=== PATIENT | male | born 1940 | race Caucasian/White ===

== ENCOUNTER 2017-11-27 13:14 | Inpatient (IN) | payer MEDICARE ==
[~2017-11-27] VITALS: Ht 182.9 cm; Wt 89.1 kg
[~2017-11-27 13:14] MED LIST: ASPI-1264 PO; ATOR40TA PO; BISA-77 PO; CLOP75TA35 PO; DEXL30CA3 PO; DOCU-148 PO; GABA-341 PO; HYDR1TAB69 PO; LISI-600 PO; NAP220T PO; NEBI10TA4 PO; NITR0.4T48 SL; TRIA1CAP6 PO
[2017-11-27 14:01] LABS: BASOPHILS % (AUTO) 0.2 % (0-1); EOSINOPHILS # (AUTO) 0.2 X10'3 (0-0.9); EOSINOPHILS % (AUTO) 1.6 % (0-6); HEMATOCRIT 40.7 % (42.0-52.0); HEMOGLOBIN 13.6 g/dl (14.0-17.9); LYMPHOCYTES # (AUTO) 0.8 X10'3 (1.1-4.8); LYMPHOCYTES % (AUTO) 6.7 % (21-51); MEAN CORPUSCULAR HEMOGLOBIN 31.9 PG (27.0-31.0); MEAN CORPUSCULAR HGB CONC 33.4 % (33.0-36.5); MEAN CORPUSCULAR VOLUME 95.7 FL (78-98); MEAN PLATELET VOLUME 6.7 FL (7.4-10.4); MONOCYTES # (AUTO) 0.6 X10'3 (0-0.9); MONOCYTES % (AUTO) 5.3 % (2-12); NEUTROPHILS # (AUTO) 10.3 X10'3 (1.8-7.7); NEUTROPHILS % (AUTO) 86.2 % (42-75); PLATELET COUNT 321 X10'3 (140-440); RED BLOOD COUNT 4.26 X10'6 (4.70-6.10); RED CELL DISTRIBUTION WIDTH 14.9 % (11.5-14.5)
[2017-11-27 14:11] LABS: INR 1.2 INR; PARTIAL THROMBOPLASTIN TIME 27 SECONDS (22-32)
[2017-11-27 14:16] LABS: ALANINE AMINOTRANSFERASE 23 U/L (12-78); ALBUMIN 3.7 G/DL (3.4-5.0); ALBUMIN/GLOBULIN RATIO 1.1 (1.1-1.5); ALKALINE PHOSPHATASE 103 IU/L (46-116); ANION GAP 10 (8-16); ASPARTATE AMINO TRANSFERASE 20 U/L (10-37); BILIRUBIN,TOTAL 0.7 MG/DL (0.1-1.0); BLOOD UREA NITROGEN 14 MG/DL (7-18); BUN/CREATININE RATIO 16.5 (5.4-32.0); CHLORIDE 102 MMOL/L (99-107); CREATININE 0.85 MG/DL (0.60-1.10); GLUCOSE 105 MG/DL (70-104); SODIUM 139 MMOL/L (135-145); TOTAL CARBON DIOXIDE 26.9 MMOL/L (24-32); TOTAL PROTEIN 7.1 G/DL (6.4-8.2); eGFR 87 ML/MIN
[2017-11-27 14:24] LABS: MAGNESIUM 1.9 MG/DL (1.5-2.4)
[2017-11-27] MEDS ORDERED: nitroGLYCERIN 1gm ointment UD TP ONE (14:30)
[2017-11-27] MEDS ORDERED: potassium Cl 40MEQ/NS 500ml 500 ML IV PRN ×2 (14:45)
[2017-11-27] MEDS ORDERED: magnesium hydroxide 30ml (MOM) UD suspension PO PRN (14:45)
[2017-11-27] MEDS ORDERED: HYDROcodone/acetaminophen 5mg/325mg tablet PO PRN (14:45)
[2017-11-27] MEDS ORDERED: ondansetron/PF 4mg/2ml inj IV PRN (14:45)
[2017-11-27] MEDS ORDERED: HYDROmorphone 1 mg/ml syringe IV PRN (14:45)
[2017-11-27] MEDS ORDERED: HYDROcodone/acetaminophen 10/325mg tab PO PRN (14:45)
[2017-11-27] MEDS ORDERED: magnesium 4gm in 100ml NS 100 ML IV PRN (14:45)
[2017-11-27] MEDS ORDERED: morphine sulfate 8 MG/ML SYRINGE IV PRN (14:45)
[2017-11-27] MEDS ORDERED: acetaminophen 325mg tablet PO PRN ×2 (14:45)
[2017-11-27] MEDS ORDERED: magnesium 2GM in 50ml NS 50 ML IV PRN (14:45)
[2017-11-27] MEDS ORDERED: metoclopramide 5 mg/ml inj IV PRN (14:45)
[2017-11-27] MEDS ORDERED: potassium Cl 20 mEq SR tablet PO PRN ×2 (14:45)
[2017-11-27] MEDS ORDERED: magnesium Cl slow-release 64mg tablet PO PRN (14:45)
[2017-11-27] MEDS ORDERED: mag hydrox/Alum hydrox/simeth 30ml oral suspension PO PRN (14:45)
[2017-11-27] MEDS: nitroGLYCERIN 1gm ointment UD TP SCH (16:00)
[2017-11-27 19:00] VITALS: BP 112/64
[2017-11-27] MEDS: naproxen sodium 220mg tablet PO SCH (20:00)
[2017-11-27] MEDS: temazepam 15mg capsule PO PRN (21:05)
[2017-11-27] MEDS: gabapentin 100mg capsule PO SCH (21:06)
[2017-11-27] MEDS: lisinopril 20mg tablet PO SCH (21:06)
[2017-11-27] MEDS: docusate sod 100mg capsule PO SCH (21:08)
[2017-11-27 23:00] VITALS: BP 145/82
[2017-11-28] MEDS ORDERED: heparin, porcine 5000 units/ml vial SQ SCH
[2017-11-28] MEDS: nitroGLYCERIN 1gm ointment UD TP SCH (00:15)
[2017-11-28] MEDS: temazepam 15mg capsule PO PRN (02:38)
[2017-11-28 03:00] VITALS: BP 132/93
[2017-11-28 03:20] LABS: BASOPHILS % (AUTO) 0.3 % (0-1); EOSINOPHILS # (AUTO) 0.2 X10'3 (0-0.9); EOSINOPHILS % (AUTO) 2.4 % (0-6); HEMATOCRIT 37.4 % (42.0-52.0); HEMOGLOBIN 12.5 g/dl (14.0-17.9); LYMPHOCYTES # (AUTO) 1.3 X10'3 (1.1-4.8); LYMPHOCYTES % (AUTO) 16.7 % (21-51); MEAN CORPUSCULAR HEMOGLOBIN 31.9 PG (27.0-31.0); MEAN CORPUSCULAR HGB CONC 33.4 % (33.0-36.5); MEAN CORPUSCULAR VOLUME 95.2 FL (78-98); MEAN PLATELET VOLUME 7.5 FL (7.4-10.4); MONOCYTES # (AUTO) 0.6 X10'3 (0-0.9); MONOCYTES % (AUTO) 7.4 % (2-12); NEUTROPHILS # (AUTO) 5.8 X10'3 (1.8-7.7); NEUTROPHILS % (AUTO) 73.2 % (42-75); PLATELET COUNT 310 X10'3 (140-440); RED BLOOD COUNT 3.92 X10'6 (4.70-6.10); RED CELL DISTRIBUTION WIDTH 14.9 % (11.5-14.5); WHITE BLOOD COUNT 7.9 X10'3 (4.5-11.0)
[2017-11-28 03:37] LABS: ALBUMIN 3.3 G/DL (3.4-5.0); ANION GAP 8 (8-16); BLOOD UREA NITROGEN 15 MG/DL (7-18); BUN/CREATININE RATIO 20.3 (5.4-32.0); CALCIUM 8.9 MG/DL (8.5-10.1); CHLORIDE 105 MMOL/L (99-107); CREATININE 0.74 MG/DL (0.60-1.10); GLUCOSE 85 MG/DL (70-104); MAGNESIUM 1.9 MG/DL (1.5-2.4); POTASSIUM 3.9 MMOL/L (3.5-5.1); SODIUM 141 MMOL/L (135-145); TOTAL CARBON DIOXIDE 27.7 MMOL/L (24-32); eGFR > 90 ML/MIN
[2017-11-28 06:00] VITALS: BP 127/80
[2017-11-28] MEDS ORDERED: pantoprazole 40mg Tablet.DR PO SCH (07:30)
[2017-11-28] MEDS: naproxen sodium 220mg tablet PO SCH (08:00)
[2017-11-28] MEDS ORDERED: K and/or MAG REPLACEMENT MC SCH (08:00)
[2017-11-28] MEDS ORDERED: apixaban 5mg tablet PO SCH (08:00)
[2017-11-28] MEDS ORDERED: aspirin 81mg tablet.DR PO SCH (08:00)
[2017-11-28] MEDS ORDERED: clopidogrel 75mg tablet PO SCH (08:00)
[2017-11-28] MEDS ORDERED: triamterene/HCTZ 37.5/25mg tablet PO SCH (08:00)
[2017-11-28] MEDS ORDERED: bisacodyl 5mg tablet.DR PO SCH (08:00)
[2017-11-28] MEDS ORDERED: aspirin 325mg tablet PO SCH (08:00)
[2017-11-28] MEDS ORDERED: isosorbide mononitrate 30mg tab.SR.24H PO SCH (08:00)
[2017-11-28] MEDS: docusate sod 100mg capsule PO SCH (08:27)
[2017-11-28] MEDS: gabapentin 100mg capsule PO SCH (08:27)
[2017-11-28] MEDS: lisinopril 20mg tablet PO SCH (08:31)
[2017-11-28] MEDS ORDERED: ISOS30TA6 PO (11:20)
== END 2017-11-28 11:30 | disposition home or self-care (01) | DRG 303 ==
LOC: ER 13:15 → ED HOLD 14:43 → PCU 3S 19:05
PROVIDERS: ADMIT Internal Medicine; ATTEND Internal Medicine
DX: I25.10 Atherosclerotic heart disease of native coronary artery without angina pectoris (principal); I48.2 Chronic atrial fibrillation; E78.5 Hyperlipidemia, unspecified; I10 Essential (primary) hypertension; G47.30 Sleep apnea, unspecified; K21.9 Gastro-esophageal reflux disease without esophagitis; K42.9 Umbilical hernia without obstruction or gangrene; Z96.653 Presence of artificial knee joint, bilateral; I25.2 Old myocardial infarction; Z79.899 Other long term (current) drug therapy; Z79.02 Long term (current) use of antithrombotics/antiplatelets; Z79.01 Long term (current) use of anticoagulants; Z79.82 Long term (current) use of aspirin; Z95.5 Presence of coronary angioplasty implant and graft
CPT/HCPCS: 36415; 71010; 80048; 80053; 80162; 83735; 83880; 84484; 85025; 85610; 85730; 87070; 99285; A6258; J1644

== ENCOUNTER 2018-01-06 14:11 | Day surgery (SDC) | payer MEDICARE ==
[2018-01-06] VITALS (7 sets, daily range): BP systolic 159–169; BP diastolic 88–97
[~2018-01-06] VITALS: Ht 182.9 cm; Wt 161.4 kg
[~2018-01-06 14:11] MED LIST changes: +ISOS30TA6 PO
[2018-01-06] MEDS ORDERED: normal saline 1000ml 1,000 ML IV SCH (14:40)
[2018-01-06] MEDS ORDERED: diphenhydrAMINE 25mg capsule PO ONE (14:40)
[2018-01-06] MEDS ORDERED: LORazepam 0.5 MG tablet PO ONE (14:40)
[2018-01-06] MEDS ORDERED: FLO0.4C PO (16:00)
[2018-01-06] MEDS ORDERED: DOCU-28 PO (16:00)
[2018-01-06] MEDS ORDERED: AMLO-93 PO (16:00)
[2018-01-06] MEDS ORDERED: ALBU18HF2 IH (16:00)
[2018-01-06] MEDS ORDERED: ISOS30TA9 PO (16:00)
[2018-01-06] MEDS ORDERED: FINA5TAB11 PO (16:00)
[2018-01-06] MEDS ORDERED: ENOX40SY7 SUBCUT (16:00)
[2018-01-06] MEDS ORDERED: APIX5TAB3 PO (16:00)
[2018-01-06] MEDS ORDERED: ASPI81TA52 PO (16:00)
[2018-01-06] MEDS ORDERED: IBUP1TAB11 PO (16:00)
[2018-01-06] MEDS ORDERED: iohexol 350MG/ML 100ml bottle IV ONE (16:19)
[2018-01-06] MEDS ORDERED: LIDOcaine 1%/PF (10mg/ml) 5ml vial ONE (16:19)
[2018-01-06] MEDS ORDERED: fentaNYL/PF 50MCG/1 ML 2ML syringe ONE (17:40)
[2018-01-06] MEDS ORDERED: midazolam 2 mg/2 ml injection ONE (17:40)
[2018-01-06] MEDS ORDERED: proCHLORperazine 10 MG/2 ml inj IV PRN (18:35)
[2018-01-06] MEDS ORDERED: ondansetron/PF 4mg/2ml inj IV PRN (18:35)
[2018-01-06] MEDS ORDERED: HYDROcodone/acetaminophen 10/325mg tab PO PRN (18:35)
[2018-01-06] MEDS ORDERED: OXAZEpam 15mg capsule PO PRN (18:35)
[2018-01-06] MEDS ORDERED: HYDROcodone/acetaminophen 5mg/325mg tablet PO PRN (18:35)
== END 2018-01-06 20:40 | disposition home or self-care (01) ==
LOC: SSTAY O 14:11
PROVIDERS: ATTEND Internal Medicine Interventional Cardiology
DX: I25.10 Atherosclerotic heart disease of native coronary artery without angina pectoris (principal); I25.2 Old myocardial infarction; I10 Essential (primary) hypertension; G47.33 Obstructive sleep apnea (adult) (pediatric); I65.23 Occlusion and stenosis of bilateral carotid arteries; I27.20 Pulmonary hypertension, unspecified; I48.91 Unspecified atrial fibrillation; K21.9 Gastro-esophageal reflux disease without esophagitis; I71.4 Abdominal aortic aneurysm, without rupture; E78.5 Hyperlipidemia, unspecified; I35.0 Nonrheumatic aortic (valve) stenosis; Z79.01 Long term (current) use of anticoagulants; Z79.82 Long term (current) use of aspirin; Z96.643 Presence of artificial hip joint, bilateral; Z87.891 Personal history of nicotine dependence; Z98.890 Other specified postprocedural states; Z95.5 Presence of coronary angioplasty implant and graft; Z79.1 Long term (current) use of non-steroidal anti-inflammatories (NSAID); Z86.74 Personal history of sudden cardiac arrest
CPT/HCPCS: 93458; 99152; A6257; C1760; C1769; J1644; J2001; J2250; J3010; J7030; Q0163; Q9967; 99153; A4620

== ENCOUNTER 2018-02-15 07:14 | Emergency (ER) | payer MEDICARE ==
[~2018-02-15] VITALS: Ht 182.9 cm; Wt 100.0 kg
[~2018-02-15 07:14] MED LIST changes: +ALBU18HF2 IH; +AMLO-93 PO; +APIX5TAB3 PO; -ASPI-1264 PO; +ASPI81TA52 PO; -BISA-77 PO; -CLOP75TA35 PO; -DEXL30CA3 PO; -DOCU-148 PO; +DOCU-28 PO; +ENOX40SY7 SUBCUT; +FINA5TAB11 PO; +FLO0.4C PO; +IBUP1TAB11 PO; -ISOS30TA6 PO; +ISOS30TA9 PO; -NAP220T PO; -TRIA1CAP6 PO
[2018-02-15 07:39] LABS: BASOPHILS % (AUTO) 0.3 % (0-1); EOSINOPHILS # (AUTO) 0.1 X10'3 (0-0.9); EOSINOPHILS % (AUTO) 1.1 % (0-6); HEMATOCRIT 37.3 % (42.0-52.0); HEMOGLOBIN 12.5 g/dl (14.0-17.9); LYMPHOCYTES # (AUTO) 1.2 X10'3 (1.1-4.8); LYMPHOCYTES % (AUTO) 15.2 % (21-51); MEAN CORPUSCULAR HEMOGLOBIN 31.5 PG (27.0-31.0); MEAN CORPUSCULAR HGB CONC 33.6 % (33.0-36.5); MEAN CORPUSCULAR VOLUME 93.7 FL (78-98); MEAN PLATELET VOLUME 6.6 FL (7.4-10.4); MONOCYTES # (AUTO) 0.8 X10'3 (0-0.9); MONOCYTES % (AUTO) 9.7 % (2-12); NEUTROPHILS % (AUTO) 73.7 % (42-75); PLATELET COUNT 362 X10'3 (140-440); RED BLOOD COUNT 3.99 X10'6 (4.70-6.10); RED CELL DISTRIBUTION WIDTH 14.9 % (11.5-14.5); WHITE BLOOD COUNT 8.1 X10'3 (4.5-11.0)
[2018-02-15 07:50] LABS: INR 1.2 INR; PARTIAL THROMBOPLASTIN TIME 26 SECONDS (22-32); PROTHROMBIN TIME 12.4 SECONDS (9.0-12.0)
[2018-02-15 08:02] LABS: ALANINE AMINOTRANSFERASE 28 U/L (12-78); ALBUMIN 3.7 G/DL (3.4-5.0); ALBUMIN/GLOBULIN RATIO 1.1 (1.1-1.5); ALKALINE PHOSPHATASE 94 IU/L (46-116); ANION GAP 11 (8-16); ASPARTATE AMINO TRANSFERASE 15 U/L (10-37); BILIRUBIN,TOTAL 0.6 MG/DL (0.1-1.0); BLOOD UREA NITROGEN 15 MG/DL (7-18); BUN/CREATININE RATIO 17.4 (5.4-32.0); CALCIUM 9.4 MG/DL (8.5-10.1); CHLORIDE 101 MMOL/L (99-107); CREATININE 0.86 MG/DL (0.60-1.10); GLUCOSE 99 MG/DL (70-104); POTASSIUM 4.2 MMOL/L (3.5-5.1); SODIUM 138 MMOL/L (135-145); TOTAL CARBON DIOXIDE 26.5 MMOL/L (24-32); TOTAL PROTEIN 7.1 G/DL (6.4-8.2); eGFR 86 ML/MIN
[2018-02-15] MEDS ORDERED: apixaban 5mg tablet PO SCH (08:15)
[2018-02-15] MEDS ORDERED: metoprolol tartrate 50mg tablet PO ONE (08:15)
[2018-02-15] MEDS ORDERED: isosorbide mononitrate 30mg tab.SR.24H PO ONE (08:15)
[2018-02-15] MEDS ORDERED: apixaban 5mg tablet PO ONE (08:15)
[2018-02-15] MEDS ORDERED: amLODIPine 5mg tablet PO ONE (08:20)
[2018-02-15] MEDS ORDERED: ipratropium/albuterol 3ml nebule NEB ONE (08:40)
[2018-02-15] MEDS ORDERED: AMLO2.5T PO (09:10)
[2018-02-15] MEDS ORDERED: LORazepam 2 mg/ml vial IV ONE (09:20)
[2018-02-15 11:51] VITALS: BP 151/97
[2018-02-15] MEDS ORDERED: METO25TA6 PO (21:05)
[2018-02-15] MEDS ORDERED: MECL12.584 PO (21:05)
== END 2018-02-15 11:52 | disposition home or self-care (01) ==
LOC: ER 07:14
DX: S40.011A Contusion of right shoulder, initial encounter (principal); R06.02 Shortness of breath; I48.91 Unspecified atrial fibrillation; I25.10 Atherosclerotic heart disease of native coronary artery without angina pectoris; I10 Essential (primary) hypertension; K21.9 Gastro-esophageal reflux disease without esophagitis; I25.2 Old myocardial infarction; Z87.891 Personal history of nicotine dependence; Z98.61 Coronary angioplasty status; Z79.82 Long term (current) use of aspirin; Z79.899 Other long term (current) drug therapy; X58.XXXA Exposure to other specified factors, initial encounter; Y93.89 Activity, other specified; Y92.89 Other specified places as the place of occurrence of the external cause; Y99.8 Other external cause status
CPT/HCPCS: 36415; 71046; 80053; 83880; 84484; 85025; 85610; 85730; 93005; 94640; 94760; 96374; 99285; J2060

== ENCOUNTER 2018-02-15 15:24 | Emergency (ER) | payer MEDICARE ==
[~2018-02-15] VITALS: Ht 182.9 cm; Wt 100.0 kg
[~2018-02-15 15:24] MED LIST changes: +AMLO2.5T PO
[2018-02-15] MEDS ORDERED: hydrALAZINE 20mg/ml inj. IV ONE (19:25)
[2018-02-15] MEDS ORDERED: meclizine 12.5mg tablet PO ONE (19:25)
[2018-02-15] MEDS ORDERED: METO25TA6 PO (21:05)
[2018-02-15] MEDS ORDERED: MECL12.584 PO (21:05)
[2018-02-15 21:45] VITALS: BP 161/96
== END 2018-02-15 21:48 | disposition home or self-care (01) ==
LOC: ER 15:25
DX: H81.10 Benign paroxysmal vertigo, unspecified ear (principal); I10 Essential (primary) hypertension; I49.3 Ventricular premature depolarization; I25.10 Atherosclerotic heart disease of native coronary artery without angina pectoris; G89.29 Other chronic pain; K21.9 Gastro-esophageal reflux disease without esophagitis; Z87.891 Personal history of nicotine dependence; Z98.61 Coronary angioplasty status; Z79.82 Long term (current) use of aspirin; Z79.899 Other long term (current) drug therapy
CPT/HCPCS: 70450; 93005; 96374; 99284; J0360; J8597

== ENCOUNTER 2023-12-16 10:55 | Inpatient (IN) | payer MEDICARE ==
[~2023-12-16] VITALS: Ht 182.9 cm; Wt 96.0 kg
[~2023-12-16 10:55] MED LIST changes: -AMLO-93 PO; -AMLO2.5T PO; -ASPI81TA52 PO; -DOCU-28 PO; -ENOX40SY7 SUBCUT; -FINA5TAB11 PO; -FLO0.4C PO; +FURO40TA4 PO; -GABA-341 PO; +GABA300C PO; -HYDR1TAB69 PO; -IBUP1TAB11 PO; +ISOS30TA84 PO; -ISOS30TA9 PO; +LINE600T14 PO; -LISI-600 PO; +LISI20TA28 PO; -NITR0.4T48 SL; +SERT-153 PO; +melatonin; +probiotics; +vitamin c
[2023-12-16 12:04] LABS: BASOPHILS % (AUTO) 0.3 % (0-1); EOSINOPHILS % (AUTO) 0.4 % (0-6); HEMATOCRIT 35.4 % (42.0-52.0); HEMOGLOBIN 11.7 g/dl (14.0-17.9); LYMPHOCYTES # (AUTO) 0.6 X10'3 (1.1-4.8); LYMPHOCYTES % (AUTO) 7.4 % (21-51); MEAN CORPUSCULAR HEMOGLOBIN 31.2 PG (27.0-31.0); MEAN CORPUSCULAR HGB CONC 33.2 g/dL (33.0-36.5); MEAN PLATELET VOLUME 7.4 FL (7.4-10.4); MONOCYTES # (AUTO) 0.7 X10'3 (0-0.9); MONOCYTES % (AUTO) 8.7 % (2-12); NEUTROPHILS # (AUTO) 6.5 X10'3 (1.8-7.7); NEUTROPHILS % (AUTO) 83.2 % (42-75); PLATELET COUNT 136 X10'3 (140-440); RED BLOOD COUNT 3.77 X10'6 (4.70-6.10); WHITE BLOOD COUNT 7.8 X10'3 (4.5-11.0)
[2023-12-16 12:18] LABS: ALANINE AMINOTRANSFERASE 10 U/L (12-78); ALBUMIN 3.2 G/DL (3.4-5.0); ALBUMIN/GLOBULIN RATIO 0.7 (1.1-1.5); ALKALINE PHOSPHATASE 154 IU/L (46-116); ANION GAP 7 (8-16); ASPARTATE AMINO TRANSFERASE 23 U/L (10-37); BILIRUBIN,TOTAL 1.9 MG/DL (0.1-1.0); BLOOD UREA NITROGEN 16 MG/DL (7-18); BUN/CREATININE RATIO 22.2 (10.0-20.0); CALCIUM 9.4 MG/DL (8.5-10.1); CHLORIDE 99 MMOL/L (99-107); CREATININE 0.72 MG/DL (0.60-1.10); GLUCOSE 93 MG/DL (70-104); MAGNESIUM 1.7 MG/DL (1.5-2.4); POTASSIUM 4.1 MMOL/L (3.5-5.1); SODIUM 135 MMOL/L (135-145); TOTAL CARBON DIOXIDE 28.8 MMOL/L (24-32); TOTAL PROTEIN 7.8 G/DL (6.4-8.2); eCRCL 85 ML/MIN; eGFR > 90 ML/MIN
[2023-12-16 14:43] LABS: BILIRUBIN,URINE SMALL (Neg); CLARITY,URINE CLEAR (Clear); COLOR,URINE YELLOW (Yellow); GLUCOSE, URINE NEGATIVE (Neg); KETONES,URINE 15 mg/dl (Neg); LEUKOCYTE ESTERASE ,URINE NEGATIVE (Neg); NITRITES, URINE NEGATIVE (Neg); OCCULT BLOOD,URINE MODERATE (Neg); PH,URINE 5.5 (4.8-8.0); PROTEIN,URINE 100 mg/dl (Neg)
[2023-12-16 14:51] LABS: UA COLLECTION TYPE URINAL
[2023-12-16 14:53] LABS: WBC,URINE 20-30 /HPF (0-4)
[2023-12-16 14:54] LABS: BACTERIA,URINE 1+ /HPF (Neg); MUCUS STRANDS MODERATE /LPF (Neg); RBC,URINE NONE SEEN /HPF (0-2); SQUAMOUS EPITHELIAL CELL,UR FEW /LPF (FEW); WBC CLUMPS,URINE FEW /HPF (NEGATIVE)
[2023-12-16] MEDS ORDERED: aspirin 325mg tablet, delayed-release (Ecotrin) PO ONE (15:15)
[2023-12-16] MEDS ORDERED: ondansetron 4mg rapidly disintigrating tab PO PRN (15:30)
[2023-12-16] MEDS ORDERED: magnesium hydroxide 30ml (MOM) UD suspension PO PRN (15:30)
[2023-12-16] MEDS ORDERED: HYDROcodone/acetaminophen 10/325mg tab PO PRN (15:30)
[2023-12-16] MEDS ORDERED: HYDROcodone/acetaminophen 5mg/325mg tablet PO PRN (15:30)
[2023-12-16] MEDS ORDERED: potassium Cl 40MEQ/1/2NS 520ml 520 ML IV PRN (15:30)
[2023-12-16] MEDS ORDERED: morphine 2 MG/ML inj. syringe IV PRN (15:30)
[2023-12-16] MEDS ORDERED: ondansetron/PF 4mg/2ml inj IV PRN (15:30)
[2023-12-16] MEDS ORDERED: magnesium 2GM in 50ml NS 50 ML IV PRN (15:30)
[2023-12-16] MEDS ORDERED: acetaminophen 325mg tablet PO PRN (15:30)
[2023-12-16] MEDS ORDERED: mag hydrox/Alum hydrox/simeth 30ml oral suspension PO PRN (15:30)
[2023-12-16] MEDS: normal saline 1000ml 1,000 ML IV SCH (15:30)
[2023-12-16] MEDS ORDERED: magnesium Cl slow-release 64mg tablet PO PRN (15:30)
[2023-12-16] MEDS ORDERED: magnesium 4gm in 100ml NS 100 ML IV PRN (15:30)
[2023-12-16] MEDS ORDERED: potassium Cl 20 mEq SR tablet PO PRN ×2 (15:30)
[2023-12-16] MEDS ORDERED: CefTRIAXone/D5W-Rocephin 1gm 50 ML IV ONE (15:35)
[2023-12-16] MEDS ORDERED: SERT25TA84 PO (17:53)
[2023-12-16] MEDS ORDERED: albuterol 2.5 MG/3 ML nebule NEB PRN (18:20)
[2023-12-16 18:39] LABS: CHOL/HDL RATIO 1.9 (0.00-4.99); CHOLESTEROL 98 MG/DL (0-200); HDL CHOLESTEROL 51 MG/DL (35-60); LDL CHOLESTEROL 41 MG/DL (50-100); THYROID STIMULATING HORMONE 1.57 ulU/ml (0.34-4.50); TRIGLYCERIDES 46 MG/DL (20-135)
[2023-12-16] MEDS: K and/or MAG REPLACEMENT MC SCH (20:50)
[2023-12-16 21:36] VITALS: BP 148/75; PULSE 74; RESP 18; TEMP 98.8; O2SAT 95
[2023-12-16] MEDS: atorvastatin 20mg tablet PO SCH (21:41)
[2023-12-16] MEDS: tamsulosin 0.4mg capsule PO SCH (21:41)
[2023-12-16] MEDS: linezolid 600mg tablet PO SCH (21:41)
[2023-12-16] MEDS: apixaban 5mg tablet PO SCH (21:42)
[2023-12-16] MEDS: sertraline 25mg tablet PO SCH (21:42)
[2023-12-16] MEDS: gabapentin 300mg capsule PO SCH (21:42)
[2023-12-16 23:03] VITALS: RESP 17; O2SAT 95
[2023-12-17] VITALS (9 sets, daily range): BP systolic 108–127; BP diastolic 55–70; PULSE 63–84; RESP 12–22; TEMP 97–99.3; O2SAT 94–97
[2023-12-17] MEDS ORDERED: metoprolol tartrate 50mg tablet PO SCH (08:00)
[2023-12-17] MEDS: K and/or MAG REPLACEMENT MC SCH ×2 (08:00→20:00)
[2023-12-17] MEDS: isosorbide mononitrate 30mg tab.SR.24H PO SCH (08:00)
[2023-12-17] MEDS: lisinopril 20mg tablet PO SCH (08:00)
[2023-12-17] MEDS: apixaban 5mg tablet PO SCH ×2 (08:33→21:35)
[2023-12-17] MEDS: furosemide 40mg tablet PO SCH (08:33)
[2023-12-17] MEDS: gabapentin 300mg capsule PO SCH ×3 (08:33→21:38)
[2023-12-17] MEDS: linezolid 600mg tablet PO SCH ×2 (08:33→21:36)
[2023-12-17] MEDS: normal saline 1000ml 1,000 ML IV SCH ×2 (08:34→17:20)
[2023-12-17 08:36] LABS: ALANINE AMINOTRANSFERASE 9 U/L (12-78); ALBUMIN 2.6 G/DL (3.4-5.0); ALBUMIN/GLOBULIN RATIO 0.7 (1.1-1.5); ALKALINE PHOSPHATASE 126 IU/L (46-116); ANION GAP 14 (8-16); ASPARTATE AMINO TRANSFERASE 19 U/L (10-37); BILIRUBIN,TOTAL 1.6 MG/DL (0.1-1.0); BLOOD UREA NITROGEN 18 MG/DL (7-18); BUN/CREATININE RATIO 27.7 (10.0-20.0); CALCIUM 8.9 MG/DL (8.5-10.1); CHLORIDE 101 MMOL/L (99-107); CREATININE 0.65 MG/DL (0.60-1.10); GLUCOSE 77 MG/DL (70-104); PHOSPHORUS 2.7 MG/DL (2.3-4.5); POTASSIUM 3.9 MMOL/L (3.5-5.1); SODIUM 136 MMOL/L (135-145); TOTAL CARBON DIOXIDE 21.3 MMOL/L (24-32); TOTAL PROTEIN 6.6 G/DL (6.4-8.2); eCRCL 95 ML/MIN; eGFR > 90 ML/MIN
[2023-12-17] MEDS: CefTRIAXone/D5W-Rocephin 1gm 50 ML IV SCH (09:21)
[2023-12-17 09:46] LABS: BASOPHILS % (AUTO) 0.4 % (0-1); EOSINOPHILS % (AUTO) 0.3 % (0-6); HEMATOCRIT 30.8 % (42.0-52.0); HEMOGLOBIN 10.3 g/dl (14.0-17.9); LYMPHOCYTES # (AUTO) 0.6 X10'3 (1.1-4.8); LYMPHOCYTES % (AUTO) 6.9 % (21-51); MEAN CORPUSCULAR HEMOGLOBIN 31.6 PG (27.0-31.0); MEAN CORPUSCULAR HGB CONC 33.3 g/dL (33.0-36.5); MEAN CORPUSCULAR VOLUME 94.8 FL (78-98); MEAN PLATELET VOLUME 7.6 FL (7.4-10.4); MONOCYTES # (AUTO) 0.7 X10'3 (0-0.9); NEUTROPHILS # (AUTO) 6.9 X10'3 (1.8-7.7); NEUTROPHILS % (AUTO) 84.4 % (42-75); PLATELET COUNT 94 X10'3 (140-440); RED BLOOD COUNT 3.25 X10'6 (4.70-6.10); RED CELL DISTRIBUTION WIDTH 16.1 % (11.5-14.5); WHITE BLOOD COUNT 8.2 X10'3 (4.5-11.0)
[2023-12-17] MEDS: acetaminophen 325mg tablet PO PRN ×2 (10:41→23:01)
[2023-12-17 13:14] LABS: PLATELET ESTIMATE DECREASED
[2023-12-17 13:15] LABS: ANISOCYTOSIS 1+; BURR CELLS FEW; ELLIPTOCYTES 1+
[2023-12-17] MEDS: atorvastatin 20mg tablet PO SCH (21:35)
[2023-12-17] MEDS: tamsulosin 0.4mg capsule PO SCH (21:35)
[2023-12-17] MEDS: sertraline 25mg tablet PO SCH (21:35)
[2023-12-18] VITALS (9 sets, daily range): BP systolic 90–142; BP diastolic 44–62; PULSE 51–77; RESP 15–23; TEMP 97.3–99.9; O2SAT 92–97
[2023-12-18 07:41] LABS: BASOPHILS % (AUTO) 0.2 % (0-1); EOSINOPHILS # (AUTO) 0.1 X10'3 (0-0.9); EOSINOPHILS % (AUTO) 1.6 % (0-6); HEMATOCRIT 29.7 % (42.0-52.0); HEMOGLOBIN 9.9 g/dl (14.0-17.9); LYMPHOCYTES # (AUTO) 0.8 X10'3 (1.1-4.8); LYMPHOCYTES % (AUTO) 11.6 % (21-51); MEAN CORPUSCULAR HEMOGLOBIN 31.4 PG (27.0-31.0); MEAN CORPUSCULAR HGB CONC 33.2 g/dL (33.0-36.5); MEAN CORPUSCULAR VOLUME 94.5 FL (78-98); MEAN PLATELET VOLUME 7.8 FL (7.4-10.4); MONOCYTES # (AUTO) 0.6 X10'3 (0-0.9); MONOCYTES % (AUTO) 7.7 % (2-12); NEUTROPHILS # (AUTO) 5.6 X10'3 (1.8-7.7); NEUTROPHILS % (AUTO) 78.9 % (42-75); PLATELET COUNT 97 X10'3 (140-440); RED BLOOD COUNT 3.14 X10'6 (4.70-6.10); RED CELL DISTRIBUTION WIDTH 15.8 % (11.5-14.5); WHITE BLOOD COUNT 7.1 X10'3 (4.5-11.0)
[2023-12-18 07:48] LABS: ALANINE AMINOTRANSFERASE 8 U/L (12-78); ALBUMIN 2.4 G/DL (3.4-5.0); ALBUMIN/GLOBULIN RATIO 0.6 (1.1-1.5); ALKALINE PHOSPHATASE 125 IU/L (46-116); ANION GAP 9 (8-16); ASPARTATE AMINO TRANSFERASE 16 U/L (10-37); BILIRUBIN,TOTAL 1.2 MG/DL (0.1-1.0); BLOOD UREA NITROGEN 21 MG/DL (7-18); BUN/CREATININE RATIO 27.3 (10.0-20.0); CALCIUM 8.5 MG/DL (8.5-10.1); CHLORIDE 104 MMOL/L (99-107); CREATININE 0.77 MG/DL (0.60-1.10); GLUCOSE 81 MG/DL (70-104); MAGNESIUM 1.9 MG/DL (1.5-2.4); PHOSPHORUS 2.6 MG/DL (2.3-4.5); POTASSIUM 3.7 MMOL/L (3.5-5.1); SODIUM 139 MMOL/L (135-145); TOTAL CARBON DIOXIDE 26.1 MMOL/L (24-32); TOTAL PROTEIN 6.6 G/DL (6.4-8.2); eCRCL 80 ML/MIN; eGFR > 90 ML/MIN
[2023-12-18] MEDS: K and/or MAG REPLACEMENT MC SCH ×2 (08:00→20:00)
[2023-12-18] MEDS: CefTRIAXone/D5W-Rocephin 1gm 50 ML IV SCH (09:18)
[2023-12-18] MEDS: normal saline 1000ml 1,000 ML IV SCH ×2 (09:35→20:00)
[2023-12-18] MEDS: furosemide 40mg tablet PO SCH (09:35)
[2023-12-18] MEDS: apixaban 5mg tablet PO SCH ×2 (09:35→20:18)
[2023-12-18] MEDS: gabapentin 300mg capsule PO SCH ×3 (09:35→20:29)
[2023-12-18] MEDS: isosorbide mononitrate 30mg tab.SR.24H PO SCH (09:36)
[2023-12-18] MEDS: lisinopril 20mg tablet PO SCH (09:37)
[2023-12-18] MEDS: linezolid 600mg tablet PO SCH (09:38)
[2023-12-18] MEDS: metoprolol tartrate 50mg tablet PO SCH ×2 (09:38→20:28)
[2023-12-18] MEDS: acetaminophen 325mg tablet PO PRN (09:43)
[2023-12-18] MEDS: sertraline 25mg tablet PO SCH (20:17)
[2023-12-18] MEDS: tamsulosin 0.4mg capsule PO SCH (20:29)
[2023-12-18] MEDS: atorvastatin 20mg tablet PO SCH (20:30)
[2023-12-19] MEDS: normal saline 1000ml 1,000 ML IV SCH (03:09)
[2023-12-19 03:34] VITALS: BP 93/49; PULSE 69; RESP 20; TEMP 98.5; O2SAT 96
[2023-12-19 06:00] VITALS: BP 135/101; PULSE 68; RESP 22; TEMP 98.1; O2SAT 96
[2023-12-19 07:13] LABS: BASOPHILS % (AUTO) 0.2 % (0-1); EOSINOPHILS # (AUTO) 0.1 X10'3 (0-0.9); EOSINOPHILS % (AUTO) 1.5 % (0-6); HEMATOCRIT 29.5 % (42.0-52.0); HEMOGLOBIN 9.8 g/dl (14.0-17.9); LYMPHOCYTES # (AUTO) 0.9 X10'3 (1.1-4.8); LYMPHOCYTES % (AUTO) 12.8 % (21-51); MEAN CORPUSCULAR HEMOGLOBIN 31.6 PG (27.0-31.0); MEAN CORPUSCULAR HGB CONC 33.3 g/dL (33.0-36.5); MEAN CORPUSCULAR VOLUME 94.9 FL (78-98); MEAN PLATELET VOLUME 8.5 FL (7.4-10.4); MONOCYTES # (AUTO) 0.4 X10'3 (0-0.9); MONOCYTES % (AUTO) 5.9 % (2-12); NEUTROPHILS # (AUTO) 5.4 X10'3 (1.8-7.7); NEUTROPHILS % (AUTO) 79.6 % (42-75); PLATELET COUNT 104 X10'3 (140-440); RED BLOOD COUNT 3.11 X10'6 (4.70-6.10); RED CELL DISTRIBUTION WIDTH 16.2 % (11.5-14.5); WHITE BLOOD COUNT 6.8 X10'3 (4.5-11.0)
[2023-12-19 07:25] LABS: ALANINE AMINOTRANSFERASE 9 U/L (12-78); ALBUMIN 2.3 G/DL (3.4-5.0); ALBUMIN/GLOBULIN RATIO 0.6 (1.1-1.5); ALKALINE PHOSPHATASE 140 IU/L (46-116); ANION GAP 9 (8-16); ASPARTATE AMINO TRANSFERASE 16 U/L (10-37); BLOOD UREA NITROGEN 26 MG/DL (7-18); BUN/CREATININE RATIO 31.7 (10.0-20.0); CALCIUM 8.4 MG/DL (8.5-10.1); CHLORIDE 105 MMOL/L (99-107); CREATININE 0.82 MG/DL (0.60-1.10); GLUCOSE 84 MG/DL (70-104); MAGNESIUM 1.8 MG/DL (1.5-2.4); PHOSPHORUS 2.5 MG/DL (2.3-4.5); POTASSIUM 3.6 MMOL/L (3.5-5.1); SODIUM 139 MMOL/L (135-145); TOTAL CARBON DIOXIDE 25.1 MMOL/L (24-32); TOTAL PROTEIN 6.4 G/DL (6.4-8.2); eCRCL 75 ML/MIN; eGFR 90 ML/MIN
[2023-12-19 08:00] VITALS: RESP 22; O2SAT 96
[2023-12-19] MEDS: K and/or MAG REPLACEMENT MC SCH (08:00)
[2023-12-19] MEDS: gabapentin 300mg capsule PO SCH ×2 (08:17→13:00)
[2023-12-19] MEDS: isosorbide mononitrate 30mg tab.SR.24H PO SCH (08:17)
[2023-12-19] MEDS: apixaban 5mg tablet PO SCH (08:17)
[2023-12-19] MEDS: furosemide 40mg tablet PO SCH (08:18)
[2023-12-19] MEDS: metoprolol tartrate 50mg tablet PO SCH (08:19)
[2023-12-19] MEDS: lisinopril 20mg tablet PO SCH (08:19)
[2023-12-19 10:41] VITALS: PULSE 81; RESP 16; O2SAT 94
[2023-12-19 11:00] VITALS: BP 105/57; PULSE 65; RESP 21; TEMP 97.7; O2SAT 96
== END 2023-12-19 16:40 | disposition home health service (06) | DRG 539 ==
LOC: ER 10:56 → ED HOLD 15:32 → ORTHO 4S 20:42 → PCU 3S 12-17 05:05
PROVIDERS: ADMIT Internal Medicine; ATTEND Internal Medicine
DX: M86.8X3 Other osteomyelitis, forearm (principal); G93.41 Metabolic encephalopathy; N39.0 Urinary tract infection, site not specified; G45.9 Transient cerebral ischemic attack, unspecified; I50.9 Heart failure, unspecified; I48.91 Unspecified atrial fibrillation; G89.29 Other chronic pain; I25.10 Atherosclerotic heart disease of native coronary artery without angina pectoris; E11.42 Type 2 diabetes mellitus with diabetic polyneuropathy; G47.33 Obstructive sleep apnea (adult) (pediatric); K21.9 Gastro-esophageal reflux disease without esophagitis; E78.5 Hyperlipidemia, unspecified; R74.01 Elevation of levels of liver transaminase levels; D64.9 Anemia, unspecified; D69.6 Thrombocytopenia, unspecified; I11.0 Hypertensive heart disease with heart failure; Z79.899 Other long term (current) drug therapy; Z91.09 Other allergy status, other than to drugs and biological substances; Z79.01 Long term (current) use of anticoagulants; M71.121 Other infective bursitis, right elbow
CPT/HCPCS: 36415; 70450; 70551; 71045; 76700; 80053; 80061; 81001; 82607; 82948; 83036; 83605; 83735; 84100; 84145; 84443; 85008; 85025; 87040; 87081; 87088; 92508; 92616; 93005; 93880; 94760; 97110; 97161; 97530; 97535; 99285; G0378; J0696; J7030